=== PATIENT | female | born 1980 | race Caucasian/White ===

== ENCOUNTER 2019-11-19 16:10 | Emergency (ER) | payer OTHER, SELFPAY ==
--- NOTE | ~2019-11-19 | US_ITS ---
EXAMINATION: US pelvic complete w TV DATE: 11/19/2019 17:24 INDICATION: Left adnexal pain. TECHNIQUE: Multiple transabdominal and endovaginal sonographic images of the pelvis were obtained. COMPARISON: None. FINDINGS: The uterus measures 10.0 x 5.2 x 6.2 cm. The endometrial complex measures 6 mm in thickness. Multipl e nabothian cysts at the cervix the largest measuring 6 mm in maximal diameter. The right ovary measu res 3.4 x 2.4 x 2.6 cm. The left ovary measures 3.4 x 1.6 x 2.6 cm. Vascular flow identified in both ovaries on color Doppler. A few small anechoic follicles at both ovaries, the largest on the right me asuring 1.4 cm in maximal diameter. There is no free fluid in the pelvis. IMPRESSION: 1. Vascular flow along with several small follicles in both ovaries. Reviewed, dictated and finalized at location A.
[2019-11-19 16:22] VITALS: BP 140/94; PULSE 77; RESP 18; TEMP 36.4; O2SAT 98
--- NOTE | 2019-11-19 16:25 | ED.ABDPAIN ---
HPI - Abdominal Pain General Chief Complaint: Abdominal Pain Stated Complaint: Cramps for One Week Time Seen by Provider: 11/19/19 16:17 Source: patient Mode of arrival: ambulatory Limitations: no limitations History of Present Illness HPI narrative: Patient is a 39-year-old female who presents to emergency department for evaluation of pain in the lower pelvic region worse in the left adnexa pain is been a cramping sharp pain which is resulted in nausea patient denies injury trauma similar occurrence vaginal bleeding discharge urinary symptoms patient presents in no distress has not taken anything for her symptoms and is in no distress Related Data Home Medications Medication Instructions Recorded Confirmed Carpel Tunnel Injections 01/03/19 ibuprofen 800 mg PO TID PRN 01/03/19 01/03/19 Allergies Allergy/AdvReac Type Severity Reaction Status Date / Time No Known Allergies Allergy Unverified 04/17/16 07:04 Review of Systems Review of Systems: All systems reviewed & are unremarkable except as noted in HPI and below PMFSH Social History Social History (Updated 11/19/19 @ 16:26 by Pete Cowan PA-C) Smoking status: Never smoker Gender identity (if verbalized by the patient): Female Exam Narrative: Exam Narrative: GENERAL: Well-appearing, well-nourished, and in no acute distress. HEAD: Normocephalic, atraumatic. EYES: PERRLA and EOMI. ENT: Nares clear, no rhinorrhea or epistaxis. Mucous membranes moist. Oropharynx without tonsillar hypertrophy exudate or other lesions. CHEST: Clear to auscultation. No respiratory distress. No wheezes rales or rhonchi HEART: Regular rate and rhythm. No murmur heard. Normal peripheral pulses. ABDOMEN: Soft, left adnexal tenderness no other tenderness of the abdomen, nondistended EXTREMITIES: Normal range of motion. No edema. SKIN: Warm, dry, no rash. NEURO: No focal deficits. Alert and oriented x3. PSYCH: Normal mood and affect. Course Course Emergency Course: Patient in the room in no distress aware of case findings treatment plan and diagnosis hydrated given medications in the emergency department with some improvement felt appropriate for outpatient reevaluation with planned gynecology follow-up. Patient provided with reasons to return Vital Signs Vital signs: Vital Signs Temperature 97.5 F L 11/19/19 16:22 Pulse Rate 77 11/19/19 16:22 Respiratory Rate 18 11/19/19 16:22 Blood Pressure 140/94 H 11/19/19 16:22 Pulse Oximetry 98 11/19/19 16:22 Temperature 97.5 F L 11/19/19 16:22 Pulse Rate 77 11/19/19 16:22 Respiratory Rate 18 11/19/19 16:22 Blood Pressure 140/94 H 11/19/19 16:22 Pulse Oximetry 98 11/19/19 16:22 MDM - Abdominal Pain MDM Narrative Medical decision making narrative: Patient in the room in no distress with left adnexal pain follicle seen on ultrasound unlikely to be causing her pain however may be a potential source no other findings are concerning results in the blood work or imaging patient's abdomen otherwise nontender other than the left adnexa no masses deformities or other findings. Patient felt appropriate for outpatient reevaluation with plan gynecology follow-up and was also given reasons to return Lab Data Result diagrams: 11/19/19 16:44 11/19/19 16:44 Labs: Lab Results 11/19/19 11/19/19 11/19/19 Range/Units 16:44 16:44 17:20 WBC 7.5 (4.5-10.0) K/mm3 RBC 4.44 (4.2-5.4) M/mm3 Hgb 12.1 (12.0-15.0) g/dL Hct 38.1 (37.0-47.0) % MCV 85.8 (80-100) fl MCH 27.3 (26-34) pg MCHC 31.8 L (32-36) g/dl RDW 14.6 H (11.5-14.5) % Plt Count 302 (150-375) k/mm3 MPV 9.9 (7.4-10.4) fl Immature Gran % (Auto) 0.3 (0-0.5) % Neut % (Auto) 68.0 (45.5-73.1) % Lymph % (Auto) 22.5 (18.3-44.2) % Kinney % (Auto) 7.4 (2.6-8.5) % Eos % (Auto) 1.3 (0-4.4) % Baso % (Auto) 0.5 (0.2-1.2) % Lymph # (Auto) 1.70 (0.9-3.2) K
[2019-11-19 16:55] LABS: Basophils Percent Auto 0.5 % (0.2-1.2); Eosinophils Absolute Auto 0.1 K/mm3 (0-0.3); Eosinophils Percent Auto 1.3 % (0-4.4); Hematocrit 38.1 % (37.0-47.0); Hemoglobin 12.1 g/dL (12.0-15.0); Immature Granulocyte Absolute 0.02 K/mm3 (0.00-0.031); Immature Granulocyte Percent A 0.3 % (0-0.5); Lymphocytes Percent Auto 22.5 % (18.3-44.2); Mean Corpuscular HGB Conc 31.8 g/dl (32-36); Mean Corpuscular Hemoglobin 27.3 pg (26-34); Mean Corpuscular Volume 85.8 fl (80-100); Mean Platelet Volume 9.9 fl (7.4-10.4); Monocytes Absolute Auto 0.6 K/mm3 (0.1-0.6); Monocytes Percent Auto 7.4 % (2.6-8.5); Neutrophils Absolute Auto 5.1 K/mm3 (1.3-6.7); Platelet Count Result 302 k/mm3 (150-375); Red Blood Count 4.44 M/mm3 (4.2-5.4); Red Cell Distribution Width 14.6 % (11.5-14.5); White Blood Count 7.5 K/mm3 (4.5-10.0)
[2019-11-19 17:12] LABS: Alanine Aminotransferase 15 U/L (4-35); Albumin Level 4.3 g/dL (3.5-5.1); Alkaline Phosphatase 68 U/L (38-126); Anion Gap 8 mmol/L (8-16); Aspartate Amino Transferase 24 U/L (14-36); Bilirubin,Total 0.3 mg/dL (0.2-1.3); Blood Urea Nitrogen 11 mg/dL (7-17); Calcium 8.9 mg/dL (8.4-10.2); Carbon Dioxide 29 mmol/L (22-30); Chloride 105 mmol/L (98-107); Estimated CRCL calculation 107 ml/min; Estimated Glomerular Filt Rate > 60; Glucose 111 mg/dL (65-105); Lipase 64 U/L (23-300); Sodium 142 mmol/L (137-145)
[2019-11-19] MEDS: SODIUM CHLORIDE 0.9% IV 1,000 ML 999 ML IV CONT (17:21)
[2019-11-19] MEDS: FAMOTIDINE 20 MG/2 ML VIAL IV PUSH (17:21)
[2019-11-19] MEDS: ONDANSETRON INJ 4 MG/2 ML VIAL IV PUSH (17:21)
[2019-11-19] MEDS: IBUPROFEN IV 800 MG/200 ML 800 MG/200 ML BAG 400 MG IVPB (17:24)
[2019-11-19 17:31] LABS: Add Urine Microscopic? NO; Appearance Urine Clear (Clear); Bilirubin Urine Negative (Negative); Blood Urine Negative (Negative); Color Urine Colorless (Yellow); Glucose Urine UA Negative (Negative); Ketones Urine Negative (Negative); Leukocyte Esterase Ur Negative LEU/UL (Negative); Nitrate Urine Negative (Negative); Protein Urine Negative (Negative); Specific Grav Ur 1.009 (1.001-1.035); Urobilinogen Urine Negative mg/dL (<2.0)
[2019-11-19 18:24] VITALS: BP 132/94; PULSE 79; RESP 12; O2SAT 99
== END 2019-11-19 18:26 | disposition home or self-care (01) ==
PROVIDERS: Emergency Medicine Emergency Medical Services; Emergency Provider Emergency Medicine
DX: R10.32 Left lower quadrant pain (principal)
CPT/HCPCS: 36415; 76830; 76856; 80053; 81003; 81025; 82248; 83690; 85025; 96361; 96365; 96375; 99284; J1741; J2405; J7030

== ENCOUNTER 2020-02-23 15:09 | Emergency (ER) | payer OTHER, SELFPAY ==
[2020-02-23 15:25] VITALS: BP 143/95; PULSE 79; RESP 18; TEMP 36.8; O2SAT 100
[2020-02-23 15:45] VITALS: BP 132/81
--- NOTE | 2020-02-23 15:55 | PC.NURSE ---
Patient declined clonidine as blood pressure upon discharge at 132/81.
--- NOTE | 2020-02-23 19:12 | ED.GENADULT ---
HPI - General Adult General Chief complaint: Extremity Injury, Upper Stated complaint: PAIN/SWELLING RIGHT ARM Source: patient and RN notes reviewed Mode of arrival: ambulatory Limitations: no limitations History of Present Illness HPI narrative: This is a 39-year-old white female who presented to urgent care with complaints pain under her right armpit. According to patient she also has tingling in the right arm and fingers but this is not new to her she has went over to [place] to see a specialist to rule out carpal tunnel syndrome. Patient does have pain with movement of her right extremity. She is positive for sensation, no obvious skin breakdown or lesions noted. No neurological defects, denies any chest pains. The patient denies SOB, CP, palpitation, extremity numbness, lightheadedness, dizziness, constipation, diarrhea, chills, or fever. Related Data Allergies Allergy/AdvReac Type Severity Reaction Status Date / Time No Known Allergies Allergy Verified 02/23/20 15:21 Review of Systems Review of Systems: All systems reviewed & are unremarkable except as noted in HPI and below (10 point system review) [facility] Social History Social History (Updated 11/19/19 @ 16:26 by Pete Cwoan PA-C) Smoking status: Never smoker Gender identity (if verbalized by the patient): Female Exam Narrative: Exam Narrative: GENERAL: This is a well-nourished, well-developed patient, in no apparent distress. HEAD: normocephalic, atraumatic. EYES: PERRL. Sclera clear/white. Vision is grossly intact. EARS: External ears normal, auditory canals clear and without drainage, TMs normal without perforation. Hearing grossly intact. NOSE: External nose normal with no obvious nasal discharge, nares without redness, no rhinorrhea. THROAT: Mucous membranes moist, posterior pharynx clear. NECK: Neck supple, non-tender without lymphadenopathy, masses or thyromegaly. CARDIOVASCULAR: Regular rate and rhythm without murmurs, gallops, or rubs. RESPIRATORY: Clear to auscultation. Breath sounds equal bilaterally. No wheezes, rales, or rhonchi. GASTROINTESTINAL: Abdomen soft, non-tender, nondistended. Bowel sounds are active. No hepato-splenomegaly, or palpable masses. No guarding. SKIN: warm, intact with no suspicious lesions or rash, good texture and turgor. NEURO: awake, alert, and oriented to person, place and time. There were no obvious focal neurologic abnormalities. Steady gait EXTREMITIES: Normal range of motion. No edema. No calf tenderness. Negative Homans sign bilaterally. BACK: Nontender without deformity or crepitance. No flank tenderness. Course Course Emergency Course: Patient will be treated for a muscle strain/sprain Vital Signs Vital signs: Vital Signs Temperature 98.2 F 02/23/20 15:25 Pulse Rate 79 02/23/20 15:25 Respiratory Rate 18 02/23/20 15:25 Blood Pressure 143/95 H 02/23/20 15:25 Pulse Oximetry 100 02/23/20 15:25 Temperature 98.2 F 02/23/20 15:25 Pulse Rate 79 02/23/20 15:25 Respiratory Rate 18 02/23/20 15:25 Blood Pressure 132/81 02/23/20 15:45 Pulse Oximetry 100 02/23/20 15:25 Medical Decision Making Vital Signs Vital Signs: Vital Signs Temperature 98.2 F 02/23/20 15:25 Pulse Rate 79 02/23/20 15:25 Respiratory Rate 18 02/23/20 15:25 Blood Pressure 143/95 H 02/23/20 15:25 Pulse Oximetry 100 02/23/20 15:25 Temperature 98.2 F 02/23/20 15:25 Pulse Rate 79 02/23/20 15:25 Respiratory Rate 18 02/23/20 15:25 Blood Pressure 132/81 02/23/20 15:45 Pulse Oximetry 100 02/23/20 15:25 Discharge Plan Discharge Clinical Impression: Sprain and strain Patient Disposition: Home, Self-Care Condition: Stable Instructions: Antibiotic Form, Sprain (ED) Additional Instructions: Ice to the area 20-30 minutes 4-6 times a day Elevate above heart Elastic wrap or orthopedic splint as directed for comfort for the next 5-7 days Crutches as direct
== END 2020-02-23 15:49 | disposition home or self-care (01) ==
PROVIDERS: Emergency Provider Nurse Practitioner
DX: S49.81XA Other specified injuries of right shoulder and upper arm, initial encounter (principal); X58.XXXA Exposure to other specified factors, initial encounter; Y93.H3 Activity, building and construction; S46.911A Strain of unspecified muscle, fascia and tendon at shoulder and upper arm level, right arm, initial encounter
CPT/HCPCS: 99213; G0463

== ENCOUNTER 2024-08-10 18:28 | Emergency (ER) | payer OTHER, SELFPAY ==
--- NOTE | ~2024-08-10 | XR_ITS ---
HISTORY: dropped heavy object on foot, pain on top of LT foot COMPARISON: None TECHNIQUE: 3 views of the left foot were performed FINDINGS: The first tarsometatarsal joint angle is 46 degrees, consistent with hallux valgus. No acute fracture or dislocation is appreciated. No significant degenerative disease is noted. The base of the fifth metatarsal is intact. No calcaneal spur is noted. Significant soft tissue swelling is identified within the left forefoot, consistent with patient's hi story. Os trigonum and os supratalare are incidentally noted. IMPRESSION: Significant soft tissue swelling about the left forefoot without acute fracture deformit y, as detailed above. Reviewed, dictated and finalized at location A. IMPRESSION: Significant soft tissue swelling about the left forefoot without a cute fracture deformity, as detailed above.
[2024-08-10 18:34] VITALS: BP 127/93; PULSE 90; RESP 16; TEMP 36.7; O2SAT 99
--- NOTE | 2024-08-10 18:41 | ED.LOWEXIN ---
HPI - Extremity Injury (Lower) General Chief Complaint: Extremity Injury, Lower Stated Complaint: Left Foot Pain Time Seen by Provider: 08/10/24 18:30 Source: patient Mode of arrival: ambulatory Limitations: no limitations History of Present Illness HPI Narrative: Patient is a 43-year-old female who presents with left foot pain for 5 days. Patient dropped something on foot wall moving but does remember what it was. Patient reports pain was immediate but was tolerable. Since then the swelling and pain have both increased. Has taken Aleve once. History of broken ankle elevated on same side. Has been using ice and elevating. Related Data Home Medications ?Medication ?Instructions ?Recorded ?Confirmed ?Last Taken ?Type ferrous sulfate 325 mg (65 mg mg 08/10/24 Unknown History iron) tablet propranolol 10 mg tablet mg 08/10/24 Unknown History Allergies Allergy/AdvReac Type Severity Reaction Status Date / Time No Known Allergies Allergy Verified 08/10/24 18:31 Review of Systems Review of Systems: All systems reviewed & are unremarkable except as noted in HPI and below Constitutional: Constitutional: Denies body ache(s), Denies chills, Denies fatigue, Denies fever(s), Denies headache(s), Denies malaise and Denies weakness Eyes: Eyes: Denies blurry vision, Denies irritation and Denies loss of vision ENT: Denies otalgia, Denies headache(s), Denies nasal discharge, Denies sinus pain and Denies sore throat Cardiovascular: Cardiovascular: Denies chest pain, Denies irregular heart rhythm and Denies dyspnea Respiratory: Respiratory: Denies dyspnea Gastrointestinal: Gastrointestinal: Denies abdominal pain, Denies melena, Denies hematochezia, Denies diarrhea, Denies nausea and Denies vomiting Musculoskeletal: Musculoskeletal: Denies back pain, Denies myalgias, Reports arthralgias and Reports joint swelling Integumentary/Breasts: Skin/Breast: Denies pruritus and Denies rash Neurologic: Denies headache(s), Denies loss of vision and Denies weakness Psychiatric: Psychiatric: Reports no additional psychiatric complaints Endocrine: Endocrine: Denies fatigue [facility] Social History Social History Smoking status: Never smoker Gender identity (if verbalized by the patient): Female Comments At time of signature, agree with nursing past medical, surgical, social and family history. There is no relevant family history pertinent to the presenting complaint. Exam Const: General: cooperative, healthy appearing, comfortable, no acute distress and well nourished Nutritional Appearance: well nourished Orientation/consciousness: patient oriented x3 Limitations: no limitations HENMT: Head: normal to inspection, normocephalic and atraumatic Ears: hearing grossly normal bilaterally and external ears normal Face/Nose/Sinus: Normal external nose present, normal facial exam and face symmetric Face and sinus: normal facial exam and face symmetric Mouth: Yes lip normal Eyes: General: appearance normal, both eyes and all related structures Alignment and Position: alignment normal and position normal Periorbital: periorbital findings normal Eyelids: eyelids normal Pupils: Equal, round and reactive pupils present EOM: EOMs intact bilaterally Neck: Neck: normal visual inspection, full ROM and supple Chest: Chest palpation & inspection: normal inspection of the chest Resp: Effort & Inspection: normal respiratory effort and able to speak in complete sentences Auscultation: clear to auscultation bilaterally Cardio: Rate: regular rate Rhythm: regular rhythm Heart sounds: S1 normal heart sound present and S2 normal heart sound present GI: Inspection: normal to inspection Skin: General skin exam: normal color and no rashes or lesions noted Neuro: General: patient oriented x3 and moves all extremities Cranial nerves: Yes Equal, round and reactive pupils present Speech: normal speech Gait exam (Neuro): Normal gait present Extrem: General: normal to inspection, full ROM and no edema Left lower extremity: ankle Details: normal to inspection and normal ROM; no tenderness, no swelling, no ecchymosis and achilles tendon exam normal and foot Details: normal capillary refill, tenderness Location: of the dorsal foot Location: distally and laterally, toes with normal ROM, vascular exam Details: dorsalis pedis pulse present and normal capillary refill and tendon exam active flexion normal of all toes and active extension normal of all toes; no ecchymosis Psych: Appearance: grossly normal and well kempt Mental Status: mental status grossly normal Speech and movement: Normal speech and movement present Affect: normal affect Attitude: cooperative Thought process: Normal thought process present Course Course Emergency Course: Patient is aware of diagnosis, understands and agrees to treatment plan. Anticipatory guidance given. Patient agrees to follow-up as directed and is aware of reasons to seek care at the emergency department. Portions of this record may have been created with voice recognition software Level of Care: Express Care Visit Vital Signs Vital signs: Vital Signs Temperature 36.7 C 08/10/24 18:34 Pulse Rate 90 08/10/24 18:34 Respiratory Rate 16 08/10/24 18:34 Blood Pressure 127/93 H 08/10/24 18:34 Pulse Oximetry 99 08/10/24 18:34 Oxygen Delivery Room Air 08/10/24 18:34 Temperature 36.7 C 08/10/24 18:34 Pulse Rate 90 08/10/24 18:34 Respiratory Rate 16 08/10/24 18:34 Blood Pressure 127/93 H 08/10/24 18:34 Pulse Oximetry 99 08/10/24 18:34 Oxygen Delivery Room Air 08/10/24 18:34 Reviewed MDM - Extremity Injury (Lower) MDM Narrative Medical decision making narrative: Hernan wrap applied Pt well hydrated appearing, in no respiratory distress, hemodynamically stable. Recommend supportive care. The patient is stable at time of discharge the clinical impression was discussed and the patient was given the opportunity to ask questions, which were addressed as completely as possible given the information available at present. Anticipatory guidance and return to care precautions were discussed and the importance of primary care follow-up was stressed and encouraged. The patient voiced understanding of the plan, indications to return, and the need for follow-up. Exam findings show no acute concerns or changes Patient is appropriate for outpatient treatment and follow-up. Differential Diagnosis Differential diagnosis: Likely ankle sprain and strain, fracture of toe, ankle fracture and other (Foot sprain, foot fracture) Medical Records Attestation: I reviewed the patient's medical records. Imaging Data Radiologist's impression: HISTORY: dropped heavy object on foot, pain on top of LT foot COMPARISON: None TECHNIQUE: 3 views of the left foot were performed FINDINGS: The first tarsometatarsal joint angle is 46 degrees, consistent with hallux valgus. No acute fracture or dislocation is appreciated. No significant degenerative disease is noted. The base of the fifth metatarsal is intact. No calcaneal spur is noted. Significant soft tissue swelling is identified within the left forefoot, consistent with patient's history. Os trigonum and os supratalare are incidentally noted. IMPRESSION: Significant soft tissue swelling about the left forefoot without acute fracture deformity, as detailed above. Discharge Plan Discharge Clinical Impression: Foot sprain Qualifiers: Encounter type: initial encounter Laterality: left Qualified Code(s): S93.602A - Unspecified sprain of left foot, initial encounter Patient Disposition: Home Condition: Stable Instructions: Foot Sprain (ED) Additional Instructions: Xray showed no fracture. Minimize activities that aggravate the condition The RICE protocol. Follow the RICE protocol as soon as possible after your injury: Rest your foot by not walking on it. Ice should be immediately applied to keep the swelling down. It can be used for 20 to 30 minutes, three or four times daily. Do not apply ice directly to your skin. Compression dressings, bandages or hernan-wraps will immobilize and support your injured foot. Elevate your foot above the level of your heart as often as possible during the first 48 hours. Medication: Nonsteroidal anti-inflammatory drugs (NSAIDs) such as ibuprofen and naproxen can help control pain and swelling. Because they improve function by both reducing swelling and controlling pain, they are a better option for mild sprains than narcotic pain medicines. Please schedule a follow-up visit with your personal physician for further evaluation and treatment within 1week OR If your symptoms persist, change or worsen significantly before you can contact your personal physician then please, without delay, go to the emergency department for further evaluation. Patient Language: Kyrgyz Prescriptions: No Action propranolol 10 mg tablet ferrous sulfate 325 mg (65 mg iron) tablet Follow-up/Referrals: Princess,MD Danielle [Primary Care Provider] - 3 Days Time of Disposition: 19:35
== END 2024-08-10 19:40 | disposition home or self-care (01) ==
PROVIDERS: Emergency Provider Nurse Practitioner Family; PCP Family Medicine
DX: S93.602A Unspecified sprain of left foot, initial encounter (principal); W20.8XXA Other cause of strike by thrown, projected or falling object, initial encounter
CPT/HCPCS: 73630; 99213; G0463